=== PATIENT | female | born 1995 | race Caucasian/White ===

== ENCOUNTER 2019-12-23 10:07 | Emergency (ER) | payer BC ==
--- NOTE | 2019-12-23 11:09 | EDM.PDOC ---
ED HPI GENERAL MEDICAL PROBLEM - General Chief Complaint: Abdominal Pain Stated Complaint: ADBOMINAL PAIN Time Seen by Provider: 12/23/19 11:05 Source of Information: Reports: Patient History Limitations: Reports: No Limitations - History of Present Illness INITIAL COMMENTS - FREE TEXT/NARRATIVE: p arrived with a history of recurrent abdomanal pain which has been going on since she was about 10. When she has a episode she starts with lower abdomanal pain which moves up. She does not vomit. She has never been told what causes the pain. Her bm are regular normally . Whe n she has the pain she goe from a hard stool to a very loose one. She has not been told that she has a irritable bowel. She has cut iout gluten and milk products and that does not help. Onset: Other (started about 1 week ago. ) Duration: Hour(s): Location: Reports: Abdomen Associated Symptoms: Reports: No Other Symptoms Abdominal Pain Score (Numeric/FACES): 4 - Related Data Allergies Allergy/AdvReac Type Severity Reaction Status Date / Time sulfamethoxazole AdvReac Other Verified 12/23/19 10:40 [From Bactrim] trimethoprim [From Bactrim] AdvReac Other Verified 12/23/19 10:40 Home Meds: Home Meds Levonorgestrel-Ethin Estradiol [Levonest-28 Tablet] 1 tab PO DAILY 12/23/19 [ History] Multivitamin [Multivitamins] 1 tab PO DAILY 12/23/19 [History] Past Medical History HEENT History: Reports: Impaired Vision Neurological History: Reports: None - Past Surgical History Head Surgeries/Procedures: Reports: None HEENT Surgical History: Reports: Adenoidectomy, Tonsillectomy Neurological Surgical History: Reports: Spinal Fusion Dermatological Surgical History: Reports: None Social & Family History - Tobacco Use Smoking Status *Q: Never Smoker Second Hand Smoke Exposure: No - Caffeine Use Caffeine Use: Reports: Coffee - Recreational Drug Use Recreational Drug Use: No ED ROS GENERAL - Review of Systems Review Of Systems: See Below Constitutional: Reports: No Symptoms HEENT: Reports: No Symptoms Respiratory: Reports: No Symptoms Cardiovascular: Reports: No Symptoms Endocrine: Reports: No Symptoms GI/Abdominal: Reports: Abdominal Pain, Other (pt is having episodes of abdomanal painwhich seem to be a lttle more frequent. She has a concern that she could have a GB problem because of the bloating that does occur. She states the pain starts in the lower abndoman and moves up. She states her stools do vary alot from loose to very hard. k) : Reports: No Symptoms Musculoskeletal: Reports: No Symptoms Skin: Reports: No Symptoms ED EXAM, GI/ABD - Physical Exam Exam: See Below Text/Narrative:: Pt has somewhat of a chronic history of recurrent abdomanal pain. This starts in the lower abdoman and then moves up She does have varible stools. Exam Limited By: No Limitations General Appearance: Alert, Anxious, Mild Distress Ears: Normal TMs Nose: Normal Inspection Throat/Mouth: Normal Inspection Head: Atraumatic Neck: Normal Inspection Respiratory/Chest: No Respiratory Distress Cardiovascular: Regular Rate, Rhythm GI/Abdominal Exam: Soft, Other ( diffuse lower abdomanal tenderness. ) (Female) Exam: Deferred Rectal (Female) Exam: Deferred Back Exam: Normal Inspection Extremities: Normal Inspection Neurological: Alert, Oriented, Normal Cognition Psychiatric: Anxious Course - Vital Signs Last Recorded V/S: Last Vital Signs Temp 36.6 C 12/23/19 10:48 Pulse 67 12/23/19 10:48 Resp 18 12/23/19 10:48 BP 136/83 12/23/19 10:48 Pulse Ox 99 12/23/19 10:48 - Orders/Labs/Meds Orders: Active Orders 24 hr Category Date Time Status Abdomen Ltd [US] Stat Exams 12/23/19 11:38 Ordered Labs: Laboratory Tests 12/23/19 12/23/19 12/23/19 Range/Units 11:09 11:11 11:11 WBC 7.3 (4.5-11.0) K/uL RBC 4.82 (3.30-5.50) M/uL Hgb 13.3 (12.0-15.0) g/dL Hct 41.6 (36.0-48.0) % MCV 86 (80-98) fL MCH 28 (27-31) pg MCHC 32 (32-36) % Plt Count 280 (150-400) K/uL Neut % (Auto) 47 (36-66) % Lymph % (Auto) 44 (24-44) % [place] % (Auto) 6 (2-6) % Eos % (Auto) 2 (2-4) % Baso % (Auto) 1 (0-1) % Sodium (140-148) mmol/L Potassium (3.6-5.2) mmol/L Chloride (100-108) mmol/L Carbon Dioxide (21-32) mmol/L Anion Gap (5.0-14.0) mmol/L BUN (7-18) mg/dL Creatinine (0.6-1.0) mg/dL Est Cr Clr Drug Dosing mL/min Estimated GFR (MDRD) (>60) Glucose (74-106) mg/dL Calcium (8.5-10.1) mg/dL Total Bilirubin (0.2-1.0) mg/dL AST (15-37) U/L ALT (12-78) U/L Alkaline Phosphatase (46-116) U/L C-Reactive Protein 0.96 H (0.0-0.3) mg/dL Total Protein (6.4-8.2) g/dL Albumin (3.4-5.0) g/dL Globulin (2.3-3.5) g/dL Albumin/Globulin Ratio (1.2-2.2) Urine Color Yellow (YELLOW) Urine Appearance Clear (CLEAR) Urine pH 7.5 (5.0-8.0) Ur Specific [place] 1.015 (1.008-1.030) Urine Protein Negative (NEGATIVE) mg/dL Urine Glucose (UA) Negative (NEGATIVE) mg/dL Urine Ketones Negative (NEGATIVE) mg/dL Urine Occult Blood Negative (NEGATIVE) Urine Nitrite Negative (NEGATIVE) Urine Bilirubin Negative (NEGATIVE) Urine Urobilinogen 0.2 (0.2-1.0) EU/dL Ur Leukocyte Esterase Negative (NEGATIVE) Urine RBC Not seen (0-5) Urine WBC Not seen (0-5) Ur Epithelial Cells Rare Amorphous Sediment Not seen Urine Bacteria Not seen Urine Mucus Not seen 12/23/19 Range/Units 11:11 WBC (4.5-11.0) K/uL RBC (3.30-5.50) M/uL Hgb (12.0-15.0) g/dL Hct (36.0-48.0) % MCV (80-98) fL MCH (27-31) pg MCHC (32-36) % Plt Count (150-400) K/uL Neut % (Auto) (36-66) % Lymph % (Auto) (24-44) % [place] % (Auto) (2-6) % Eos % (Auto) (2-4) % Baso % (Auto) (0-1) % Sodium 141 (140-148) mmol/L Potassium 3.8 (3.6-5.2) mmol/L Chloride 105 (100-108) mmol/L Carbon Dioxide 28 (21-32) mmol/L Anion Gap 8.4 (5.0-14.0) mmol/L BUN 10 (7-18) mg/dL Creatinine 1.0 (0.6-1.0) mg/dL Est Cr Clr Drug Dosing 61.23 mL/min Estimated GFR (MDRD) > 60 (>60) Glucose 91 (74-106) mg/dL Calcium 8.7 (8.5-10.1) mg/dL Total Bilirubin 0.3 (0.2-1.0) mg/dL AST 16 (15-37) U/L ALT 29 (12-78) U/L Alkaline Phosphatase 76 (46-116) U/L C-Reactive Protein (0.0-0.3) mg/dL Total Protein 7.2 (6.4-8.2) g/dL Albumin 3.4 (3.4-5.0) g/dL Globulin 3.8 H (2.3-3.5) g/dL Albumin/Globulin Ratio 0.9 L (1.2-2.2) Urine Color (YELLOW) Urine Appearance (CLEAR) Urine pH (5.0-8.0) Ur Specific [place] (1.008-1.030) Urine Protein (NEGATIVE) mg/dL Urine Glucose (UA) (NEGATIVE) mg/dL Urine Ketones (NEGATIVE) mg/dL Urine Occult Blood (NEGATIVE) Urine Nitrite (NEGATIVE) Urine Bilirubin (NEGATIVE) Urine Urobilinogen (0.2-1.0) EU/dL Ur Leukocyte Esterase (NEGATIVE) Urine RBC (0-5) Urine WBC (0-5) Ur Epithelial Cells Amorphous Sediment Urine Bacteria Urine Mucus - Re-Assessments/Exams Free Text/Narrative Re-Assessment/Exam: 12/23/19 13:36 lab work was normal pt had a US of the area and this was normal. Departure - Departure Time of Disposition: 13:37 Disposition: Home, Self-Care 01 Condition: Fair Clinical Impression: Irritable bowel syndrome - Discharge Information Referrals: Lesvia Burns MD [Primary Care Provider] - Forms: ED Department Discharge Care Plan Goals: push fluid, increase fiber in the diet, fibercon 1 tab bid. At this time use mom and clear out the bowel then increase the fiber, regular exercise. If not better see Dr Burns at the clinic and possibly have a referal to Gastroenterology. Sepsis Event Note - Evaluation Sepsis Screening Result: No Definite Risk - Focused Exam Vital Signs: Vital Signs Temp Pulse Resp BP Pulse Ox 12/23/19 10:48 36.6 C 67 18 136/83 99 12/23/19 10:44 36.6 C 67 18 136/83 99 Date Exam was Performed: 12/23/19 Time Exam was Performed: 13:23 - My Orders Last 24 Hours: My Active Orders 12/23/19 11:38 Abdomen Ltd [US] Stat - Assessment/Plan Last 24 Hours: My Active Orders 12/23/19 11:38 Abdomen Ltd [US] Stat
--- NOTE | 2019-12-23 13:48 | CRLUS ---
INDICATION: Right upper quadrant abdominal pain. Nausea. TECHNIQUE: Ultrasound abdomen limited. Sonographic images of the right upper quadrant were obtained using johnson-scale and color Doppler images. COMPARISON: None FINDINGS: Liver: Normal in size and echotexture. No masses. No intrahepatic biliary dilatation. Gallbladder: No stones or sludge. Normal wall thickness. No pericholecystic fluid. Common bile duct: 6 mm. Pancreas: Unremarkable as imaged. The tail of the pancreas is suboptimally visualized. Normal directional flow in the splenic vein. Right kidney: 10.4 cm in length. Normal echotexture and cortex. No masses, stones, or hydronephrosis. Vasculature: Visualized aorta and IVC are normal. No free fluid demonstrated. IMPRESSION: Unremarkable right upper quadrant ultrasound. Dictated by Luis Alberto Solomon MD @ 12/23/2019 1:46:23 PM Dictated by: Luis Alberto Solomon MD @ 12/23/2019 13:46:39 (Electronically Signed)
== END 2019-12-23 13:48 | disposition home or self-care (01) ==
LOC: JP.ED 10:07
DX: K58.9 Irritable bowel syndrome, unspecified (principal); Z88.5 Allergy status to narcotic agent; Z88.1 Allergy status to other antibiotic agents
CPT/HCPCS: 36415; 76705; 80053; 81001; 85025; 86140; 99284-25

== ENCOUNTER 2022-06-13 10:45 | Emergency (ER) | payer BC, OTHER ==
[2022-06-13] MEDS ORDERED: diphenhydrAMINE 50 MG/ML SDV IVPUSH ONE (11:17)
[2022-06-13] MEDS ORDERED: methylPREDNISolone Sodium Succinate 125 MG/2 ML SDV IVPUSH ONE (11:17)
[2022-06-13] MEDS ORDERED: Famotidine 20 MG/2 ML SDV IVPUSH ONE ×2 (11:17→11:45)
== END 2022-06-13 13:27 | disposition home or self-care (01) ==
LOC: JP.ED 10:45
DX: T78.40XA Allergy, unspecified, initial encounter (principal); E06.3 Autoimmune thyroiditis; Z88.2 Allergy status to sulfonamides; Z79.899 Other long term (current) drug therapy; Z86.16 Personal history of COVID-19
CPT/HCPCS: 96374; 96375; 99283; J1200; J2930; J3490

== ENCOUNTER 2024-09-18 13:53 | Emergency (ER) | payer OTHER ==
[2024-09-18 14:59] LABS: APPEARANCE,URINE CLEAR (CLEAR); BILIRUBIN,URINE NEGATIVE (NEGATIVE); COLOR,URINE YELLOW (YELLOW); GLUCOSE,URINE NEGATIVE (NEGATIVE); KETONES,URINE NEGATIVE (NEGATIVE); LEUKOCYTE ESTERASE,URINE NEGATIVE (NEGATIVE); NITRITE,URINE NEGATIVE (NEGATIVE); OCCULT BLOOD,URINE NEGATIVE (NEGATIVE); PH,URINE 7.5 (5.0-8.0); PROTEIN,URINE NEGATIVE (NEGATIVE); UROBILINOGEN,URINE 0.2 EU/dL (0.2-1.0)
[2024-09-18 15:10] LABS: AMORPHOUS SEDIMENT,URINE NOT SEEN; BACTERIA,URINE MODERATE; EPITHELIAL CELLS,URINE RARE; MUCUS,URINE RARE; RBC,URINE 0-5 (0-5); WBC,URINE 0-5 (0-5)
[2024-09-18 15:27] LABS: BASOPHILS ABSOLUTE AUTO 0.06 K/uL (0.00-0.10); BASOPHILS PERCENT AUTO 0.5 % (0.1-1.3); EOSINOPHILS ABSOLUTE AUTO 0.31 K/uL (0.00-0.40); EOSINOPHILS PERCENT AUTO 2.7 % (0.0-5.4); HEMATOCRIT 39.2 % (34.3-46.0); IMMATURE GRAN ABSOLUTE AUTO 0.04 K/uL (0.00-0.23); IMMATURE GRAN PERCENT AUTO 0.3 % (0.0-0.7); LYMPHOCYTES ABSOLUTE AUTO 3.09 K/uL (0.8-3.3); MEAN CORPUSCULAR HEMOGLOBIN 27.6 pg (31.6-35.5); MEAN CORPUSCULAR HGB CONC 33.2 g/dL (31.6-35.5); MEAN CORPUSCULAR VOLUME 83.2 fL (81.4-99.0); MONOCYTES ABSOLUTE AUTO 0.46 K/uL (0.20-0.90); NEUTROPHILS ABSOLUTE AUTO 7.48 K/uL (1.0-7.6); NEUTROPHILS PERCENT AUTO 65.5 % (40.0-78.1); PLATELET COUNT,PLT 318 K/uL (130-375); RED BLOOD CELL COUNT 4.71 M/uL (3.77-5.24); WHITE BLOOD CELL COUNT,WBC 11.4 K/uL (3.2-11.0)
[2024-09-18 15:49] LABS: ALANINE AMINOTRANSFERASE,ALT 26 U/L (12-78); ALBUMIN 3.7 g/dL (3.4-5.0); ALKALINE PHOSPHATASE 86 U/L (46-116); ASPARTATE AMNIOTRANSFERASE,AST 14 U/L (15-37); BILIRUBIN TOTAL 0.3 mg/dL (0.2-1.0); BLOOD UREA NITROGEN,BUN 13 mg/dL (7-18); CALCIUM 9.3 mg/dL (8.5-10.1); CARBON DIOXIDE,CO2 28 mmol/L (21-32); CHLORIDE,CL 101 mmol/L (100-108); EST CRCL DRUG DOSING (CG) 58.55 mL/min; ESTIMATED GFR 77 mL/min (>60); GLUCOSE RANDOM 132 mg/dL (74-106); POTASSIUM,K 3.7 mmol/L (3.6-5.2); PROTEIN TOTAL,TP 7.5 g/dL (6.4-8.2); SODIUM,NA 137 mmol/L (140-148)
[2024-09-18 15:51] LABS: ANION GAP 11.7 mmol/L (5.0-14.0)
[2024-09-18] MEDS: Sodium Chloride 0.9% 100 ML IV ONE (16:26)
[2024-09-18] MEDS: Sodium Chloride 0.9% 10 ML Syringe FLUSH PRN (16:27)
[2024-09-18] MEDS: Iopamidol 755 Mg/ML 100 ML Bottle IV SCH (16:27)
[2024-09-18] MEDS: Ondansetron 4 MG Tab.DIS PO ONE (16:38)
== END 2024-09-18 17:08 | disposition home or self-care (01) ==
LOC: JP.ED 13:53
DX: R42 Dizziness and giddiness (principal); R26.9 Unspecified abnormalities of gait and mobility; Z86.16 Personal history of COVID-19; Z88.2 Allergy status to sulfonamides; Z88.8 Allergy status to other drugs, medicaments and biological substances
CPT/HCPCS: 36415; 70450; 70450-26; 70496; 70496-26; 70498; 70498-26; 80053; 81001; 81025; 82947; 85025; 99284; J3490; Q0162; Q9967